=== PATIENT | male | born 1985 | race Caucasian/White ===

== ENCOUNTER 2021-04-21 19:01 | Emergency (ER) | payer BC ==
[~2021-04-21] VITALS: Ht 175.3 cm; Wt 128.0 kg
[2021-04-21] MEDS ORDERED: IBUP-2029 MT (22:22)
[2021-04-21] MEDS ORDERED: DEXAMETHASONE 4MG TABLET PO SCH (22:30)
[2021-04-21] MEDS ORDERED: ACETAMINOPHEN 325MG TABLET PO ONE (23:00)
[2021-04-21 23:07] VITALS: BP 131/74
== END 2021-04-21 23:12 | disposition home or self-care (01) ==
LOC: ER 19:01
DX: R50.9 Fever, unspecified (principal); R51.9 Headache, unspecified; Z20.822 Contact with and (suspected) exposure to COVID-19; J02.9 Acute pharyngitis, unspecified
CPT/HCPCS: 87426; 99283; J8540